=== PATIENT | female | born 1975 | race Caucasian/White ===

== ENCOUNTER 2017-06-10 02:53 | Emergency (ER) | payer OTHER ==
[2017-06-10 03:53] LABS: PLATELET COUNT 392 x10^3mcL (130-400); RED CELL DISTRIBUTION WIDTH 12.7 % (11.5-14.5)
[2017-06-10 04:00] LABS: CALCIUM 8.8 mg/dL (8.5-10.1); CARBON DIOXIDE 26.3 mmol/L (21-32); CHLORIDE SERUM 104 mmol/L (98-107); CREATININE SERUM 0.8 mg/dL (0.6-1.0); GFR1 > 60 mL/min; GLUCOSE SERUM 91 mg/dL (74-106); POTASSIUM SERUM 3.7 mmol/L (3.5-5.1); SODIUM SERUM 140 mmol/L (136-145)
[2017-06-10 04:03] LABS: ALKALINE PHOSPHATASE 88 U/L (46-116); ALT/SGPT 42 U/L (14-59); AST/SGOT 27 U/L (15-37); BILIRUBIN TOTAL 0.2 mg/dL (0.20-1.00); LIPASE 95 IU/L (73-393); TOTAL PROTEIN, SERUM 8.5 g/dL (6.4-8.2)
[2017-06-10 06:28] VITALS: BP 130/70
== END 2017-06-10 06:28 | disposition home or self-care (01) ==
LOC: ED 02:53
PROVIDERS: Emergency Medicine
DX: R10.13 Epigastric pain (principal); R11.10 Vomiting, unspecified; R19.7 Diarrhea, unspecified
CPT/HCPCS: G0480; J2270; J2405; J2765; J3490; J7030